=== PATIENT | female | born 1955 | race Caucasian/White ===

== ENCOUNTER 2017-12-29 10:05 | Emergency (ER) | payer OTHER ==
[~2017-12-29] VITALS: Ht 152.4 cm; Wt 81.0 kg
[2017-12-29 10:38] VITALS: BP 147/94
== END 2017-12-29 11:42 | disposition home or self-care (01) ==
LOC: ER 10:05
DX: G51.0 Bell's palsy (principal); R20.2 Paresthesia of skin; Z88.2 Allergy status to sulfonamides; Z88.5 Allergy status to narcotic agent
CPT/HCPCS: 93005; 99283